=== PATIENT | female | born 1960 | race Caucasian/White ===

== ENCOUNTER 2019-04-17 06:18 | Emergency (ER) | payer OTHER ==
--- NOTE | 2019-04-17 07:16 | PDOC ---
History of Present Illness - General Stated Complaint: MIGRAINE Time Seen by Provider: 04/17/19 07:15 History Source: Patient Exam Limitations: No Limitations - History of Present Illness Initial Comments: 58-year-old female with past medical history of hypertension, migraine headaches , intermittent hyperglycemia presented to the emergency department for a headache for a week. Patient reported she is intermittently had a band like headache wrapping around the front of her head to the back of her head, intermittent, pounding, aggravated by light, no alleviating factors. Patient reported she has tried her usual headache regimen, including Motrin, Topamax. She reported that she has not tried Tylenol at all. She reported starting last Saturday she did go tomorrow like symptoms, body aches, runny nose, dry cough. She reported she figured she had a flu like illness, she reported that those symptoms have been improving, but her headache has persisted. She reported during her feel like illnesses she had a fever of around 99.5F. She reported no other fevers. She denied numbness, weakness, visual changes, gait changes, confusion, hallucinations, dizziness. ROS General: denied fever, chills, generalized weakness. HEENT: admitted to rhinorrhea. denied sore throat, ear pain. Cardiovascular: denied chest pain, palpitations, syncope, diaphoresis. Respiratory: admitted to cough. denied shortness of breath, sputum production, hemoptysis. Gastrointestinal: denied abdominal pain, nausea, vomiting, diarrhea, constipation, blood in stool. Genitourinary: denied dysuria, increased urinary frequency, hematuria, urinary incontinence, flank pain. Back: denied back pain. Musculoskeletal: denied joint pain, muscle pain, joint swelling. Neurological: admitted to headache. denied dizziness, numbness, tingling, weakness. Integumentary: denied rash, laceration, abrasion. Hematologic/Lymphatic: denied bruising or bleeding. PE Constitutional: Well-nourished, Well-developed, appearing stated age. HEENT: head is normocephalic, atraumatic. EOMI. PERRLA. Neck: supple. Full ROM. Cardiovascular: regular heart rhythm. no murmurs. no pericardial friction rub. Respiratory: clear to auscultation bilaterally. no crackles, rhonchi or wheezing. no stridor. Gastrointestinal: soft, nontender. normal bowel sounds. no rebound, guarding, masses. Extremities: peripheral pulses intact. no lower extremity edema. Neurological: alert. oriented x3. CN2-12 intact. 5/5 strength all extremities. normal ankle plantar flexion. full sensation all extremities and bilateral face. gait normal. Psych: awake, alert, oriented x3. follows commands. answers questions appropriately. Past History - Past Medical History Allergies/Adverse Reactions: Allergies Allergy/AdvReac Type Severity Reaction Status Date / Time Sulfa (Sulfonamide Allergy Verified 04/17/19 07:18 Antibiotics) Home Medications: Ambulatory Orders Amitriptyline HCl [Elavil -] 40 mg PO HS 04/17/19 Atorvastatin Calcium 40 mg PO HS 04/17/19 Diltiazem Cd [Cardizem Cd -] 120 mg PO DAILY 04/17/19 Solifenacin Succinate [Vesicare -] 10 mg PO DAILY 04/17/19 Topiramate [Topamax] 75 mg PO HS 04/17/19 Vital Signs - Vital Signs #1 Time: 09:10 Blood Pressure: 130/73 BP Location: Left Arm Blood Pressure Position: Supine Pulse Rate: 84 Respiratory Rate: 16 O2 Sat by Pulse Oximetry (%): 98 Oxygen Delivery Method: Room Air Medical Decision Making - Medical Decision Making 58 year old female with above PMH presented to ED for intermittent headache x1 week. Initial Vital Signs Temp Pulse Resp BP Pulse Ox 98.1 F 101 H 20 153/91 97 04/17/19 07:18 04/17/19 07:18 04/17/19 07:18 04/17/19 07:18 04/17/19 07:18 Afebrile. Borderline tachycardic. No tahcypnea. Hypertensive. No hypoxia on room air. Labs ordered: none Imaging ordered: none Medications ordered: tylenol IV, reglan 10 mg IV once, benadryl 50 mg IV, normal saline bolus 1000 cc once 04/17/19 09:14 Vital Signs Pulse Rate 84 04/17/19 09:14 Respiratory Rate 16 04/17/19 09:14 Blood Pressure 130/73 04/17/19 09:14 O2 Sat by Pulse Oximetry (%) 98 04/17/19 09:14 Pt reported improvement of symptoms. Would like to be discharged. Pt educated on using Tylenol OTC for her headaches, drinking fluids, sleeping. Pt expressed understanding and agreed with plan for care. Pt discharged. Discharge - Discharge Information Problems reviewed: Yes Clinical Impression/Diagnosis: Headache Qualifiers: Headache type: unspecified Headache chronicity pattern: unspecified pattern Intractability: not intractable Qualified Code(s): R51 - Headache Condition: Improved Disposition: HOME - Admission No - Follow up/Referral Referrals: Maricel Vieira [Primary Care Provider] - Art Roldan MD [Staff Physician] - - Patient Discharge Instructions Patient Printed Discharge Instructions: DI for Migraine Additional Instructions: Follow up with your primary care doctor within 3 days regarding your Emergency Room visit. Your care is not complete until you follow up. Follow up with your neurologist within 3 days regarding your Emergency Room visit. Your care is not complete until you follow up. I have provided you with a referral should you need one. Take your prescriptions as you are instructed by your doctors. Take Tylenol over the counter for headache. Take as advised on label. Drink lots of water to stay hydrated. Sleep at least 8 hours a night. Return to the Emergency Department for numbness, weakness, visual changes, gait changes, speech changes, fever, continuous vomiting, or any other new, worsening or concerning symptoms. - Post Discharge Activity Work/Back to School Note: Back to Work
[2019-04-17] MEDS ORDERED: METOCLOPRAMIDE HCL INJECTION 10 MG/2 ML VIAL IVPUSH ONE (07:22)
[2019-04-17] MEDS ORDERED: ACETAMINOPHEN 1000 MG/100 ML VIAL (NON FORMULARY) IVPB ONE (07:22)
[2019-04-17] MEDS ORDERED: SODIUM CHLORIDE 1,000 ML IV STA (07:23)
[2019-04-17 07:25] VITALS: TEMP 98.1; BMI 31.7
--- NOTE | 2019-04-17 07:30 | PDOC ---
Attending Attestation - Resident Resident Name: Yamileth Adler - ED Attending Attestation I have performed the following: I have examined & evaluated the patient, The case was reviewed & discussed with the resident, I agree w/resident's findings & plan, Exceptions are as noted - HPI HPI: 04/17/19 08:35 58-year-old female history of hypertension, migraines, diabetes presenting with a complaint for headache. Patient's states that she has had a worsening intermittent pressure-like headache in the front of her head rating to the back for the past week. Patient has been taking medications including Motrin, Imitrex, Topamax without significant improvement. The patient notes that the pain is similar nature to her prior headaches however it is more persistent than usual. The patient also distal versus having a recent URI including significant nasal congestion, body aches, subjective fever, recently however it has since improved dramatically. GENERAL: The patient is awake, alert, and fully oriented, Nontoxic - in no acute distress. HEAD: Normocephalic, atraumatic. EYES: extraocular movements intact, sclera anicteric, conjunctiva clear. ENT: Normal voice, Moist mucous membranes. NECK: Normal range of motion, supple LUNGS: Breath sounds equal, clear to auscultation bilaterally. No wheezes, no rhonchi, no rales. HEART: Regular rate and rhythm, normal S1 and S2 without murmur, rub or gallop. ABDOMEN: Soft, nontender, No guarding, no rebound. No CVA tenderness EXTREMITIES: Normal range of motion, no edema. NEUROLOGICAL: No facial assymetry, Normal speech, PSYCH: Normal mood, normal affect. SKIN: Warm, Dry, normal turgor, suspect migraine vs tension headache no clinical signs/symptoms suggestive of intracranial catastrophy kris claudia tylenol, fluids will reasess - Physicial Exam PE: 04/19/19 17:56 see above - Medical Decision Making Pt feeling improved. headache resolved will dc the pt with pmd fu return precauions were discussed
[2019-04-17] MEDS ORDERED: METOCLOPRAMIDE HCL INJECTION 10 MG/2 ML VIAL ONE (07:35)
[2019-04-17] MEDS ORDERED: ACETAMINOPHEN INJECTION 100 ML IVPB ONE (07:35)
[2019-04-17 09:14] VITALS: BP 130/73; PULSE 84
== END 2019-04-17 09:24 | disposition home or self-care (01) ==
LOC: JER 06:18
PROC: 3E0337Z Introduction of Electrolytic and Water Balance Substance into Peripheral Vein, Percutaneous Approach (ICD-10-PCS; principal; 2019-04-17)
PROC: 3E033NZ Introduction of Analgesics, Hypnotics, Sedatives into Peripheral Vein, Percutaneous Approach (ICD-10-PCS; 2019-04-17)
PROC: 3E033GC Introduction of Other Therapeutic Substance into Peripheral Vein, Percutaneous Approach (ICD-10-PCS; 2019-04-17)
PROC: 3E033GC Introduction of Other Therapeutic Substance into Peripheral Vein, Percutaneous Approach (ICD-10-PCS; 2019-04-17)
DX: R51 Headache (principal); I10 Essential (primary) hypertension; E11.9 Type 2 diabetes mellitus without complications; G43.909 Migraine, unspecified, not intractable, without status migrainosus
CPT/HCPCS: 99283-25; J0131; J7030

== ENCOUNTER 2020-08-27 11:57 | Emergency (ER) | payer OTHER ==
[2020-08-27 12:09] VITALS: BMI 30.9
[2020-08-27] MEDS ORDERED: ACETAMINOPHEN 1000 MG/100 ML VIAL (NON FORMULARY) IVPB ONE (12:44)
[2020-08-27] MEDS ORDERED: SODIUM CHLORIDE 1,000 ML IV STA (12:52)
[2020-08-27] MEDS ORDERED: ACETAMINOPHEN INJECTION 100 ML IVPB ONE (13:13)
[2020-08-27 13:52] LABS: BASO % 1.3 % (0-2.0); EOS % 1.5 % (0-4.5); HEMATOCRIT 42.3 % (32.4-45.2); HEMOGLOBIN 14.2 GM/dL (10.7-15.3); MCH 30.2 pg (25.7-33.7); MCHC 33.6 g/dl (32.0-36.0); MEAN CELL VOLUME 89.9 fl (80-96); MEAN PLT VOLUME 8.6 fl (7.5-11.1); MONO % 6.5 % (3.8-10.2); NEUT % 56.7 % (42.8-82.8); PLATELET COUNT 344 K/MM3 (134-434); RBC 4.71 M/mm3 (3.60-5.2); RDW 13.9 % (11.6-15.6); WHITE BLOOD COUNT 8.1 K/mm3 (4.0-10.0)
[2020-08-27 14:01] LABS: CALCIUM 9.2 mg/dL (8.5-10.1)
[2020-08-27 14:02] LABS: ALBUMIN 4.1 g/dl (3.4-5.0); BLOOD UREA NITROGEN 17.6 mg/dL (7-18)
[2020-08-27 14:05] LABS: CREATININE 0.9 mg/dL (0.55-1.3)
[2020-08-27 14:05] LABS: EPI CELLS 9 /uL (0-25.1); HYALINE CASTS 1 /uL (0-3.1); URINE APPEARANCE CLOUDY; URINE BACTERIA 22 /uL (0-1359); URINE BILIRUBIN NEGATIVE (NEGATIVE); URINE COLOR DK YELLOW; URINE GLUCOSE (UA) NEGATIVE (NEGATIVE); URINE KETONE TRACE (NEGATIVE); URINE LEUK ESTERASE TRACE (NEGATIVE); URINE NITRITE NEGATIVE (NEGATIVE); URINE PROTEIN TRACE (NEGATIVE); URINE RBC 24.6 /uL (0-23.9); URINE UROBILINOGEN 0.2 mg/dL (0.2-1.0); URINE WBC 6 /uL (0-25.8)
[2020-08-27 14:06] LABS: BILIRUBIN,TOTAL 0.4 mg/dL (0.2-1)
[2020-08-27 14:28] LABS: URINE CRYSTALS CA OXALATE MODERATE /hpf
[2020-08-27 18:01] VITALS: BP 159/87; PULSE 85; TEMP 97.8
[2020-08-27] MEDS ORDERED: CIPROFLOXACIN 500 MG TABLET (RESTRICTED TO ID) PO ONE (18:22)
== END 2020-08-27 18:55 | disposition home or self-care (01) ==
LOC: JER 11:57
PROC: 3E0233Z Introduction of Anti-inflammatory into Muscle, Percutaneous Approach (ICD-10-PCS; principal; 2020-08-27)
PROC: 3E0337Z Introduction of Electrolytic and Water Balance Substance into Peripheral Vein, Percutaneous Approach (ICD-10-PCS; 2020-08-27)
DX: K57.92 Diverticulitis of intestine, part unspecified, without perforation or abscess without bleeding (principal)
CPT/HCPCS: 36415; 74177-TC; 76830-TC; 76856-TC; 80053; 81003; 85025; 87086; 99285-25; J0131; Q9967

== ENCOUNTER 2021-10-13 12:45 | Emergency (ER) | payer OTHER ==
[2021-10-13 13:02] VITALS: BP 142/88; TEMP 98; BMI 30.9
[2021-10-13] MEDS ORDERED: KETOROLAC TROMETHAMINE 30 MG/1 ML VIAL IM ONE (14:13)
[2021-10-13] MEDS ORDERED: KETOROLAC TROMETHAMINE 30 MG/1 ML VIAL ONE (14:18)
[2021-10-13 14:26] VITALS: PULSE 91
== END 2021-10-13 15:01 | disposition home or self-care (01) ==
LOC: JERFT 12:45
PROC: 3E023GC Introduction of Other Therapeutic Substance into Muscle, Percutaneous Approach (ICD-10-PCS; principal; 2021-10-13)
DX: M62.838 Other muscle spasm (principal)
CPT/HCPCS: 99284-25

== ENCOUNTER 2021-10-23 22:13 | Emergency (ER) | payer OTHER ==
[2021-10-23 22:19] VITALS: TEMP 98.2; BMI 30.5
[2021-10-24] MEDS ORDERED: ACETAMINOPHEN 325 MG TABLET (FP) PO STA (00:43)
[2021-10-24] MEDS ORDERED: ACETAMINOPHEN 325 MG TABLET (FP) ONE (00:47)
[2021-10-24 01:18] LABS: BASO % 0.8 % (0-2.0); EOS % 2.3 % (0-4.5); HEMATOCRIT 42.5 % (32.4-45.2); HEMOGLOBIN 14.1 GM/dL (10.7-15.3); LYMPH % 33.8 % (8-40); MCH 29.3 pg (25.7-33.7); MCHC 33.1 g/dl (32.0-36.0); MEAN CELL VOLUME 88.4 fl (80-96); MEAN PLT VOLUME 8.4 fl (7.5-11.1); MONO % 7.7 % (3.8-10.2); NEUT % 55.4 % (42.8-82.8); PLATELET COUNT 349 10^3/uL (134-434); RBC 4.81 M/mm3 (3.60-5.2); RDW 13.5 % (11.6-15.6); WHITE BLOOD COUNT 9.2 K/mm3 (4.0-10.0)
[2021-10-24 01:25] LABS: INR 0.94 (0.83-1.09); PROTHROMBIN TIME (PATIENT) 10.8 SEC (9.7-13.0)
[2021-10-24 01:27] LABS: ACTIVATED PTT 31.6 SECONDS (25.2-36.5)
[2021-10-24 01:58] LABS: BLOOD UREA NITROGEN 15.8 mg/dL (7-18); CALCIUM 9.6 mg/dL (8.5-10.1)
[2021-10-24 01:59] LABS: ALBUMIN 4.1 g/dl (3.4-5.0)
[2021-10-24 02:01] LABS: MAGNESIUM 2.1 mg/dL (1.8-2.4)
[2021-10-24 02:03] LABS: BILIRUBIN,TOTAL 0.4 mg/dL (0.2-1); TOT PROT 8.3 g/dl (6.4-8.2)
[2021-10-24 02:17] LABS: CREATININE 0.9 mg/dL (0.55-1.3)
[2021-10-24 10:27] VITALS: BP 144/82; PULSE 78
== END 2021-10-24 10:27 | disposition home or self-care (01) ==
LOC: JER 22:13
DX: R00.2 Palpitations (principal); M79.604 Pain in right leg
CPT/HCPCS: 36415; 71046-TC-FY; 80053; 82550; 83735; 84484; 85025; 85610; 85730; 93005; 93010; 93970-TC; 99285-25

== ENCOUNTER 2021-11-06 07:06 | Emergency (ER) | payer OTHER ==
[2021-11-06 07:25] VITALS: TEMP 98.1; BMI 30.5
[2021-11-06] MEDS ORDERED: SODIUM CHLORIDE 0.9% 500 ML INFUS.BAG IV ONE ×3 (07:42→09:53)
[2021-11-06 08:48] LABS: VENOUS BASE EXCESS -3.9 mmol/L (-2-2); VENOUS O2 SATURATION 81.1 % (70-80); VENOUS PCO2 45.6 mmHg (38-52); VENOUS PH 7.311 (7.310-7.410)
[2021-11-06 08:52] LABS: BASO % 0.2 % (0-2.0); HEMATOCRIT 46.4 % (32.4-45.2); HEMOGLOBIN 15.2 GM/dL (10.7-15.3); LYMPH % 16.3 % (8-40); MCH 29.2 pg (25.7-33.7); MCHC 32.7 g/dl (32.0-36.0); MEAN CELL VOLUME 89.3 fl (80-96); MEAN PLT VOLUME 8.9 fl (7.5-11.1); MONO % 5.2 % (3.8-10.2); NEUT % 78.3 % (42.8-82.8); PLATELET COUNT 470 10^3/uL (134-434); RDW 13.2 % (11.6-15.6); WHITE BLOOD COUNT 12.4 K/mm3 (4.0-10.0)
[2021-11-06 08:57] LABS: EPI CELLS 16 /uL (0-25.1); HYALINE CASTS 5 /uL (0-3.1); URINE APPEARANCE CLEAR; URINE BACTERIA 7 /uL (0-1359); URINE BILIRUBIN NEGATIVE (NEGATIVE); URINE COLOR YELLOW; URINE GLUCOSE (UA) 3+ (NEGATIVE); URINE KETONE TRACE (NEGATIVE); URINE LEUK ESTERASE NEGATIVE (NEGATIVE); URINE NITRITE NEGATIVE (NEGATIVE); URINE PROTEIN 2+ (NEGATIVE); URINE RBC 9 /uL (0-23.9); URINE UROBILINOGEN 0.2 mg/dL (0.2-1.0); URINE WBC 25 /uL (0-25.8)
[2021-11-06 09:13] LABS: INR 0.97 (0.83-1.09); PROTHROMBIN TIME (PATIENT) 11.2 SEC (9.7-13.0)
[2021-11-06 09:21] LABS: CHLORIDE 93 mmol/L (98-107); SODIUM 132 mmol/L (136-145)
[2021-11-06 09:23] LABS: CALCIUM 10.5 mg/dL (8.5-10.1)
[2021-11-06 09:24] LABS: ALBUMIN 4.3 g/dl (3.4-5.0); ANION GAP 14 MMOL/L (8-16); BLOOD UREA NITROGEN 33.8 mg/dL (7-18); CO2 25 mmol/L (21-32); MAGNESIUM 2.7 mg/dL (1.8-2.4)
[2021-11-06 09:27] LABS: CREATININE 1.5 mg/dL (0.55-1.3); SGOT/AST 12 U/L (15-37); SGPT/ALT 33 U/L (13-61)
[2021-11-06 09:29] LABS: BILIRUBIN,TOTAL 0.7 mg/dL (0.2-1)
[2021-11-06 09:34] LABS: GLUCOSE,RANDOM 677 mg/dL (74-106)
[2021-11-06] MEDS ORDERED: INSULIN REGULAR HUMAN 100 UNITS/ML *VIAL SQ ONE ×2 (09:55→12:38)
[2021-11-06 10:34] LABS: ALK PHOS 391 U/L (45-117)
[2021-11-06 12:12] LABS: CHLORIDE 105 mmol/L (98-107); SODIUM 139 mmol/L (136-145)
[2021-11-06 12:14] LABS: ANION GAP 12 MMOL/L (8-16); BLOOD UREA NITROGEN 30.5 mg/dL (7-18); CO2 21 mmol/L (21-32)
[2021-11-06 12:17] LABS: CREATININE 0.9 mg/dL (0.55-1.3)
[2021-11-06 12:28] LABS: CALCIUM 8.6 mg/dL (8.5-10.1); GLUCOSE,RANDOM 434 mg/dL (74-106)
[2021-11-06 13:59] VITALS: BP 164/92; PULSE 88
== END 2021-11-06 13:55 | disposition home or self-care (01) ==
LOC: JER 07:06
DX: R73.9 Hyperglycemia, unspecified (principal)
CPT/HCPCS: 0241U-QW; 36415; 71046-TC-FY; 80048; 80053; 81003; 82010; 82803; 82962; 83735; 84484; 85025; 85610; 85730; 87086; 93005; 93010; 99285-25

== ENCOUNTER 2022-08-01 06:43 | Emergency (ER) | payer OTHER ==
[2022-08-01 07:01] VITALS: BP 164/92; PULSE 109; RESP 18; TEMP 98.2; BMI 29.9
[2022-08-01] MEDS ORDERED: IBUPROFEN 600 MG TABLET (FP) PO ONE ×2 (07:52→07:53)
== END 2022-08-01 07:55 | disposition home or self-care (01) ==
LOC: JER 06:43
DX: S90.02XA Contusion of left ankle, initial encounter (principal); W20.8XXA Other cause of strike by thrown, projected or falling object, initial encounter
CPT/HCPCS: 73610-TC-LT-FY; 73630-TC-LT; 99283-25

== ENCOUNTER 2023-04-19 05:33 | Emergency (ER) | payer OTHER ==
[2023-04-19 05:39] VITALS: BMI 30.9
[2023-04-19] MEDS ORDERED: ACETAMINOPHEN 1000 MG/100 ML BAG IVPB ONE (05:57)
[2023-04-19] MEDS ORDERED: DEXAMETHASONE SOD PHOSPHATE 10 MG/1 ML VIAL IVPUSH ONE (05:58)
[2023-04-19] MEDS ORDERED: ALBUTEROL SO4 2.5/IPRATROPIUM 0.5 INH SOL 3 ML VIAL.NEB. NEB SCH (06:00)
[2023-04-19] MEDS ORDERED: SODIUM CHLORIDE 0.9% 500 ML INFUS.BAG IV ONE (06:14)
[2023-04-19] MEDS ORDERED: ALBUTEROL SO4 2.5/IPRATROPIUM 0.5 INH SOL 3 ML VIAL.NEB. NEB ONE (06:18)
[2023-04-19] MEDS ORDERED: DEXAMETHASONE SOD PHOSPHATE 10 MG/1 ML VIAL ONE (06:18)
[2023-04-19 06:59] LABS: BASO % 0.7 % (0-2.0); HEMATOCRIT 38.1 % (32.4-45.2); LYMPH % 26.8 % (8-40); MCH 30.1 pg (25.7-33.7); MCHC 34.2 g/dl (32.0-36.0); MEAN CELL VOLUME 87.9 fl (80-96); MEAN PLT VOLUME 8.5 fl (7.5-11.1); MONO % 7.1 % (3.8-10.2); NEUT % 64.4 % (42.8-82.8); PLATELET COUNT 382 10^3/uL (134-434); RBC 4.33 M/mm3 (3.60-5.2); RDW 13.5 % (11.6-15.6); WHITE BLOOD COUNT 10.3 K/mm3 (4.0-10.0)
[2023-04-19 07:20] VITALS: BP 116/64; PULSE 84; RESP 17; TEMP 97.8
[2023-04-19 07:21] LABS: POTASSIUM 4.2 mmol/L (3.5-5.1)
[2023-04-19 07:23] LABS: ALBUMIN 3.4 g/dl (3.4-5.0); BLOOD UREA NITROGEN 15.4 mg/dL (7-18); CALCIUM 9.1 mg/dL (8.5-10.1); MAGNESIUM 1.7 mg/dL (1.8-2.4)
[2023-04-19 07:28] LABS: TOT PROT 7.7 g/dl (6.4-8.2)
[2023-04-19 08:32] LABS: BILIRUBIN,TOTAL 0.8 mg/dL (0.2-1)
[2023-04-19 08:38] LABS: EPI CELLS 11 /uL (0-25.1); HYALINE CASTS 118 /uL (0-3.1); URINE APPEARANCE CLOUDY; URINE BACTERIA >9,000 /uL (0-1359); URINE BILIRUBIN NEGATIVE (NEGATIVE); URINE COLOR DK YELLOW; URINE GLUCOSE (UA) TRACE (NEGATIVE); URINE KETONE 1+ (NEGATIVE); URINE LEUK ESTERASE 2+ (NEGATIVE); URINE NITRITE POSITIVE (NEGATIVE); URINE PROTEIN 2+ (NEGATIVE); URINE RBC 27 /uL (0-23.9); URINE WBC 728 /uL (0-25.8)
[2023-04-19] MEDS ORDERED: CEFTRIAXONE 1,000 MG in DEXTROSE 5%-WATER - 50 ML IVPB ONE (08:59)
[2023-04-19] MEDS ORDERED: CEFTRIAXONE 1 GM/50 ML BAG ONE (09:14)
== END 2023-04-19 11:20 | disposition home or self-care (01) ==
LOC: JER 05:33
PROC: 3E03329 Introduction of Other Anti-infective into Peripheral Vein, Percutaneous Approach (ICD-10-PCS; principal; 2023-04-19)
PROC: 3E033GC Introduction of Other Therapeutic Substance into Peripheral Vein, Percutaneous Approach (ICD-10-PCS; 2023-04-19)
PROC: 3E0F7GC Introduction of Other Therapeutic Substance into Respiratory Tract, Via Natural or Artificial Opening (ICD-10-PCS; 2023-04-19)
DX: R53.81 Other malaise (principal); R05.1 Acute cough; J34.89 Other specified disorders of nose and nasal sinuses; R00.0 Tachycardia, unspecified; N39.0 Urinary tract infection, site not specified; Z20.822 Contact with and (suspected) exposure to COVID-19
CPT/HCPCS: 0241U-QW; 36415; 71046-TC-FY; 80053; 81003; 83735; 84484; 85025; 87086; 87186; 99284-25; J1100

== ENCOUNTER 2023-12-04 06:21 | Emergency (ER) | payer OTHER ==
[2023-12-04 06:33] VITALS: RESP 20; TEMP 98.6; BMI 29.6
[2023-12-04] MEDS ORDERED: ACETAMINOPHEN INJECTION 100 ML IVPB ONE (08:12)
[2023-12-04 08:15] LABS: EOS % 1.9 % (0-4.5); HEMATOCRIT 38.4 % (32.4-45.2); HEMOGLOBIN 13.1 GM/dL (10.7-15.3); LYMPH % 23.5 % (8-40); MCH 29.9 pg (25.7-33.7); MCHC 34.2 g/dl (32.0-36.0); MEAN CELL VOLUME 87.6 fl (80-96); MEAN PLT VOLUME 8.1 fl (7.5-11.1); MONO % 5.2 % (3.8-10.2); NEUT % 68.4 % (42.8-82.8); PLATELET COUNT 369 10^3/uL (134-434); RBC 4.38 M/mm3 (3.60-5.2); RDW 14.3 % (11.6-15.6); WHITE BLOOD COUNT 10.6 K/mm3 (4.0-10.0)
[2023-12-04 08:19] LABS: EPI CELLS 11 /uL (0-25.1); HYALINE CASTS 0 /uL (0-3.1); PH,URINE 5.5 (5.0-8.0); URINE APPEARANCE CLEAR; URINE BACTERIA 7 /uL (0-1359); URINE BILIRUBIN NEGATIVE (NEGATIVE); URINE COLOR YELLOW; URINE GLUCOSE (UA) 3+ (NEGATIVE); URINE KETONE TRACE (NEGATIVE); URINE LEUK ESTERASE NEGATIVE (NEGATIVE); URINE NITRITE NEGATIVE (NEGATIVE); URINE PROTEIN 2+ (NEGATIVE); URINE RBC 6 /uL (0-23.9); URINE UROBILINOGEN 0.2 mg/dL (0.2-1.0); URINE WBC 15 /uL (0-25.8)
[2023-12-04] MEDS: ACETAMINOPHEN 1000 MG/100 ML BAG IVPB ONE (08:25)
[2023-12-04] MEDS: SODIUM CHLORIDE 1,000 ML IV ONE (08:25)
[2023-12-04 08:33] LABS: CALCIUM 9.4 mg/dL (8.5-10.1)
[2023-12-04 08:34] LABS: ALBUMIN 3.7 g/dl (3.4-5.0); BLOOD UREA NITROGEN 16.6 mg/dL (7-18)
[2023-12-04 08:37] LABS: CREATININE 0.9 mg/dL (0.55-1.3)
[2023-12-04 08:39] LABS: BILIRUBIN,TOTAL 0.6 mg/dL (0.2-1); TOT PROT 7.5 g/dl (6.4-8.2)
[2023-12-04 08:40] VITALS: BP 145/78; PULSE 99
[2023-12-04] MEDS ORDERED: AMOX TR/POT CLAV 875MG/125MG TABLETS (FP) ONE (10:32)
[2023-12-04] MEDS: AMOX TR/POT CLAV 875MG/125MG TABLETS (FP) PO ONE (10:41)
== END 2023-12-04 10:56 | disposition home or self-care (01) ==
LOC: JER 06:21
PROC: 3E033NZ Introduction of Analgesics, Hypnotics, Sedatives into Peripheral Vein, Percutaneous Approach (ICD-10-PCS; principal; 2023-12-04)
PROC: 3E0337Z Introduction of Electrolytic and Water Balance Substance into Peripheral Vein, Percutaneous Approach (ICD-10-PCS; 2023-12-04)
DX: K57.32 Diverticulitis of large intestine without perforation or abscess without bleeding (principal); R10.30 Lower abdominal pain, unspecified; R30.9 Painful micturition, unspecified
CPT/HCPCS: 36415; 74177-TC; 80053; 81003; 85025; 87086; 99285-25; J0131

== ENCOUNTER 2024-05-07 05:32 | Emergency (ER) | payer OTHER ==
[2024-05-07 05:38] VITALS: BMI 29.6
[2024-05-07] MEDS ORDERED: ACETAMINOPHEN INJECTION 100 ML ONE (06:02)
[2024-05-07] MEDS ORDERED: METOCLOPRAMIDE HCL INJECTION 10 MG/2 ML VIAL ONE (06:02)
[2024-05-07] MEDS: ACETAMINOPHEN 1000 MG/100 ML BAG IVPB ONE (06:26)
[2024-05-07] MEDS: METOCLOPRAMIDE HCL INJECTION 10 MG/2 ML VIAL IVPUSH ONE (06:26)
[2024-05-07] MEDS: SODIUM CHLORIDE 0.9% 500 ML INFUS.BAG IV ONE (06:27)
[2024-05-07 06:59] LABS: BASO % 0.7 % (0-2.0); EOS % 0.3 % (0-4.5); HEMATOCRIT 36.9 % (32.4-45.2); LYMPH % 18.6 % (8-40); MCH 29.2 pg (25.7-33.7); MCHC 32.4 g/dl (32.0-36.0); MONO % 10.1 % (3.8-10.2); NEUT % 70.3 % (42.8-82.8); PLATELET COUNT 368 10^3/uL (134-434); RDW 13.8 % (11.6-15.6); WHITE BLOOD COUNT 7.8 K/mm3 (4.0-10.0)
[2024-05-07 07:20] LABS: POTASSIUM 4.2 mmol/L (3.5-5.1)
[2024-05-07 07:21] LABS: CALCIUM 9.1 mg/dL (8.5-10.1)
[2024-05-07 07:22] LABS: ALBUMIN 3.8 g/dl (3.4-5.0)
[2024-05-07 07:25] LABS: CREATININE 1.1 mg/dL (0.55-1.3)
[2024-05-07 07:27] LABS: BILIRUBIN,TOTAL 0.6 mg/dL (0.2-1); TOT PROT 7.5 g/dl (6.4-8.2)
[2024-05-07 08:54] VITALS: RESP 18
[2024-05-07] MEDS ORDERED: ALBUTEROL SO4 2.5/IPRATROPIUM 0.5 INH SOL 3 ML VIAL.NEB. NEB ONE ×2 (09:09→10:30)
[2024-05-07] MEDS ORDERED: methylPREDNISolone NA SUCC 125 MG/2 ML VIAL ONE (09:10)
[2024-05-07] MEDS ORDERED: IBUPROFEN 400 MG TABLET (FP) PO ONE (09:10)
[2024-05-07] MEDS ORDERED: OSELTAMIVIR PHOSPHATE 75 MG CAPSULE ONE (09:10)
[2024-05-07] MEDS: methylPREDNISolone NA SUCC 125 MG/2 ML VIAL IVPUSH ONE (09:18)
[2024-05-07] MEDS: IBUPROFEN 400 MG TABLET (FP) PO ONE (09:18)
[2024-05-07] MEDS: OSELTAMIVIR PHOSPHATE 75 MG CAPSULE PO ONE (09:19)
[2024-05-07] MEDS: ALBUTEROL SO4 2.5/IPRATROPIUM 0.5 INH SOL 3 ML VIAL.NEB. NEB SCH (09:19)
[2024-05-07] MEDS ORDERED: ALBUTEROL SO4 HFA INHALER IH ONE (10:54)
[2024-05-07] MEDS: ALBUTEROL SO4 HFA INHALER IH ONE (10:56)
[2024-05-07 12:33] VITALS: PULSE 113
[2024-05-07 12:37] VITALS: BP 127/72; TEMP 99.1
== END 2024-05-07 11:19 | disposition home or self-care (01) ==
LOC: JER 05:32
PROC: 3E033NZ Introduction of Analgesics, Hypnotics, Sedatives into Peripheral Vein, Percutaneous Approach (ICD-10-PCS; principal; 2024-05-07)
PROC: 3E033GC Introduction of Other Therapeutic Substance into Peripheral Vein, Percutaneous Approach (ICD-10-PCS; 2024-05-07)
PROC: 3E033GC Introduction of Other Therapeutic Substance into Peripheral Vein, Percutaneous Approach (ICD-10-PCS; 2024-05-07)
DX: J10.1 Influenza due to other identified influenza virus with other respiratory manifestations (principal); R51.9 Headache, unspecified; R53.1 Weakness; R05.9 Cough, unspecified; M79.10 Myalgia, unspecified site; R53.81 Other malaise; R00.0 Tachycardia, unspecified; R53.83 Other fatigue; Z20.822 Contact with and (suspected) exposure to COVID-19
CPT/HCPCS: 0241U-QW; 36415; 71046-TC-FY; 80053; 82962; 85025; 93005; 93010; 99285-25; J0131